=== PATIENT | female | born 1965 | race Caucasian/White ===

== ENCOUNTER 2024-03-04 12:02 | Inpatient (IN) | payer OTHER ==
[2024-03-04] MEDS ORDERED: ACETAMINOPHEN 325 MG TABLET (FP) ONE (13:56)
[2024-03-04] MEDS: ACETAMINOPHEN 500 MG TABLET (FP) PO ONE (13:59)
[2024-03-04] MEDS: SODIUM CHLORIDE 0.9% 500 ML INFUS.BAG IV ONE (14:16)
[2024-03-04 14:19] LABS: BASO % 0.5 % (0-2.0); EOS % 0.3 % (0-4.5); HEMATOCRIT 36.5 % (32.4-45.2); HEMOGLOBIN 12.3 GM/dL (10.7-15.3); LYMPH % 35.5 % (8-40); MCH 28.3 pg (25.7-33.7); MCHC 33.5 g/dl (32.0-36.0); MEAN CELL VOLUME 84.5 fl (80-96); MEAN PLT VOLUME 8.7 fl (7.5-11.1); MONO % 9.7 % (3.8-10.2); PLATELET COUNT 215 10^3/uL (134-434); RBC 4.33 M/mm3 (3.60-5.2); RDW 14.3 % (11.6-15.6); WHITE BLOOD COUNT 4.2 K/mm3 (4.0-10.0)
[2024-03-04 14:34] LABS: CHLORIDE 108 mmol/L (98-107); POTASSIUM 3.3 mmol/L (3.5-5.1); SODIUM 140 mmol/L (136-145)
[2024-03-04 14:36] LABS: CALCIUM 8.7 mg/dL (8.5-10.1)
[2024-03-04 14:37] LABS: BLOOD UREA NITROGEN 11.1 mg/dL (7-18); GLUCOSE,RANDOM 85 mg/dL (74-106)
[2024-03-04 14:38] LABS: ALBUMIN 3.6 g/dl (3.4-5.0); ANION GAP 7 mmol/L (4-13); CO2 26 mmol/L (21-32)
[2024-03-04 14:40] LABS: CREATININE 0.6 mg/dL (0.55-1.3); SGOT/AST 12 U/L (15-37); SGPT/ALT 19 U/L (13-61)
[2024-03-04 14:41] LABS: BILIRUBIN,TOTAL 0.7 mg/dL (0.2-1); TOT PROT 6.3 g/dl (6.4-8.2)
[2024-03-04 14:43] LABS: ALK PHOS 88 U/L (45-117)
[2024-03-04] MEDS ORDERED: POTASSIUM CHLORIDE ORAL LIQUID 20 MEQ/15 ML ONE (14:57)
[2024-03-04] MEDS: POTASSIUM CHLORIDE ORAL LIQUID 20 MEQ/15 ML PO ONE (15:03)
[2024-03-04 15:09] LABS: MAGNESIUM 2.2 mg/dL (1.8-2.4)
[2024-03-04] MEDS: VENLAFAXINE HCL 25 MG TABLET PO ONE (16:02)
[2024-03-04 23:05] VITALS: BMI 25.9
[2024-03-05] MEDS: VENLAFAXINE HCL 37.5 MG TABLET PO SCH (13:20)
[2024-03-05] MEDS: SODIUM CHLORIDE 1,000 ML IV SCH (13:21)
[2024-03-06] MEDS: VENLAFAXINE HCL 37.5 MG TABLET PO SCH (09:35)
[2024-03-06] MEDS ORDERED: VENLAFAXINE HCL 25 MG TABLET PO SCH (10:00)
[2024-03-06] MEDS ORDERED: ARTIFICIAL TEARS OPHTHALMIC DROPS OU PRN (10:06)
[2024-03-06] MEDS: SODIUM CHLORIDE 500 ML IV STA (10:09)
[2024-03-06] MEDS ORDERED: ACETAMINOPHEN 325 MG TABLET (FP) PO PRN (17:55)
[2024-03-07 09:07] VITALS: RESP 18
[2024-03-08 18:25] VITALS: BP 94/58; PULSE 86; TEMP 98.2
== END 2024-03-08 20:59 | DRG 885 ==
LOC: JER 12:02 → JERBED 15:37 → OBSVTOIN 18:36 → J7W 20:45
PROVIDERS: ADMIT Internal Medicine; ATTEND Nurse Practitioner
DX: F32.2 Major depressive disorder, single episode, severe without psychotic features (principal); R45.851 Suicidal ideations; I95.9 Hypotension, unspecified
CPT/HCPCS: 0241U-QW; 36415; 80053; 80307; 83735; 84132; 85025; 93005; 93010; 97116-GP; 97162-GP; 99285-25; G0378